=== PATIENT | female | born 1995 | race African-American/Black ===

== ENCOUNTER 2017-03-13 22:05 | Emergency (ER) | payer OTHER ==
[2017-03-13 22:06] VITALS: BP 142/75; PULSE 68; RESP 16; TEMP 97.6; O2SAT 100
[2017-03-14] MEDS ORDERED: SODIUM CHLORIDE 0.9% FLUSH 10 ML FLUSH IVF PRN (01:15)
[2017-03-14] MEDS ORDERED: RESP: ALBUTEROL 2.5 MG/IPRATROPIUM 0.5 MG NEB (SCH) INH ONE (01:15)
--- NOTE | 2017-03-14 01:15 | RADRPT ---
EXAM DATE/TIME: 03/14/2017 01:04 [place] COMPARISON: No previous studies available for comparison. INDICATIONS : Short of breath. MEDICAL HISTORY : None. SURGICAL HISTORY : None. ENCOUNTER: Initial ACUITY: 1 day PAIN SCORE: 6/10 LOCATION: Bilateral chest FINDINGS: The lungs are clear without infiltrate, nodule, or mass. There is no appreciable pleural effusion fo r technique. Heart and mediastinum are unremarkable. CONCLUSION: No acute cardiopulmonary disease. Dilip Chapman MD on March 14, 2017 at 1:13 Board Certified Radiologist. This report was verified electronically.
[2017-03-14 01:25] VITALS: O2SAT 100
[2017-03-14] MEDS ORDERED: ALBU1AER5 INH (01:34)
[2017-03-14 01:50] LABS: BLOOD, URINE NEG (NEG); COMMENT (UR) CULT NOT INDICATED; CULTURE IF INDICATED CULT NOT INDICATED; GLUCOSE,URINE NEG (NEG); KETONE, URINE NEG (NEG); MUCUS URINE FEW /lpf (OCC); NITRITE,URINE NEG (NEG); SQUAMOUS EPITHELIAL CELL URINE 3 /hpf (0-5); URINE COLOR YELLOW (YELLW/STRAW)
--- NOTE | 2017-03-14 02:16 | PD ---
HPI Chief Complaint: Respiratory Distress Time Seen by Provider: 23:54 Travel History International Travel<30 days: No Contact w/Intl Traveler<30days: No Traveled to known affect area: No History of Present Illness HPI The patient is a 21 year old female who presents to the [facility] emergency department with a history of shortness of breath that she reports began at approximately 7 PM this evening. The patient reports that she is currently visiting from out of town. The patient reports that she does have a history of asthma, however she did not bring her rescue inhaler with her. She incidentally also reports that she's had constipation for the last 2 days she's been traveling. She reports having urinary frequency without dysuria or urinary urgency. The patient denies any recent fevers, cough, congestion, neck pain, chest pain, shortness of breath, abdominal pain, vomiting, diarrhea, or neurologic symptoms. LMP: At the beginning of the month PFSH Past Medical History Narrative Medical The patient's past medical history is significant for asthma. Her last asthma attack was 2 years ago. Medical History: Denies Significant Hx Respiratory: Yes Immunizations Current: Yes ?: Not Past Surgical History Narrative Surgical The patient's past surgical history is reportedly none. Surgical History: No Previous Surgery Social History Alcohol Use: No Tobacco Use: No Substance Use: No Allergies-Medications (Allergen,Severity, Reaction): Coded Allergies: Shellfish (Verified Allergy, Severe, Swelling, 03/13/17) Reported Meds & Prescriptions Reported Meds & Active Scripts Active Proair Respiclick Inh (Albuterol Sulfate) 90 Mcg/Act Aerp 2 Puff INH Q4-6H PRN Review of Systems Except as stated in HPI: all other systems reviewed are Neg General / Constitutional: No: Fever Eyes: No: Visual changes HENT: No: Headaches Cardiovascular: Positive: Dyspnea on exertion, No: Chest Pain or Discomfort Respiratory: Positive: Shortness of Breath, Wheezing, No: Cough Gastrointestinal: No: Nausea, Vomiting, Diarrhea, Abdominal Pain Genitourinary: No: Dysuria Musculoskeletal: No: Pain Skin: No Rash Neurologic: No: Weakness Psychiatric: No: Depression Endocrine: No: Polydipsia Hematologic/Lymphatic: No: Easy Bruising Physical Exam Narrative General: The patient is a well-developed well-nourished female in no acute distress. Head and Neck exam: Head is normocephalic atraumatic. Eyes: EOMI, pupils are equal round and reactive to light. Nose: Midline septum with pink mucous membranes Mouth: Dentition unremarkable. Moist mucus membranes. Posterior oropharynx is not erythematous. No tonsillar hypertrophy. Uvula midline. Airway patent. Neck: No palpable lymphadenopathy. No nuchal rigidity. No thyromegaly. Cardiovascular: Regular rate and rhythm without murmurs, gallops, or rubs. Lungs: Soft expiratory wheezes are audible throughout bilateral lung mabry. No accessory muscle use. No paroxysmal abdominal breathing, no tripoding. Abdomen: Soft, without tenderness to palpation in all 4 quadrants of the abdomen. No guarding, rebound, or rigidity. Normal bowel sounds are audible. No tenderness on palpation of McBurney's point. Extremities: No clubbing, cyanosis, or edema. 2+ pulses in all 4 extremities. No calf tenderness on palpation. Back: No spinous process tenderness to palpation. The patient reports having left- sided CVA tenderness on palpation. Neurologic Exam: Grossly nonfocal. Skin Exam: No rash noted. Intact skin that is warm and dry. Data Data Last Documented VS Vital Signs Date Time Temp Pulse Resp B/P Pulse Ox O2 Delivery O2 Flow Rate FiO2 03/14/17 01:25 100 21 03/14/17 00:10 18 Room Air 03/13/17 22:06 97.6 68 142/75 Orders Chest, Single Ap (03/14/17 01:02) Sodium Chloride 0.9% Flush (Ns Flush) (03/14/17 01:15) Albuterol-Ipratropium Neb (Duoneb Neb) (03/14/17 01:15) Urinalysis - C+S If Indicated (03/14/17 01:33) Ed Urine Pregnancytest Poc (03/14/17 01:33) Labs Laboratory Tests Test 03/14/17 01:42 Urine Color YELLOW Urine Turbidity CLEAR Urine pH 7.0 Urine Specific [place] 1.025 Urine Protein TRACE mg/dL Urine Glucose (UA) NEG mg/dL Urine Ketones NEG mg/dL Urine Occult Blood NEG Urine Nitrite NEG Urine Bilirubin NEG Urine Urobilinogen LESS THAN 2.0 MG/DL Urine Leukocyte Esterase MOD Urine WBC LESS THAN 1 /hpf Urine Squamous Epithelial 3 /hpf Cells Urine Mucus FEW /lpf Microscopic Urinalysis Comment CULT NOT INDICATED MDM Medical Decision Making Medical Screen Exam Complete: Yes Emergency Medical Condition: Yes Medical Record Reviewed: Yes Differential Diagnosis Urinary tract infection, versus asthma exacerbation, versus pneumonia, versus musculoskeletal strain Narrative Course During the course of the patients emergency department visit, the patients history, examination, and differential diagnosis were reviewed with the patient. The patient had a chest x-ray ordered. The urine will be sent for analysis. A bedside test was negative. The patient was initially provided a DuoNeb 1. The patients laboratory studies were reviewed and remarkable for a urinalysis that is unremarkable. Radiology studies were reviewed and remarkable for a chest x-ray that shows no acute abnormality. The patient will be discharged home with a prescription for a rescue inhaler. The patient is resting comfortably and feels better, is alert and in no distress. The patients results and examination findings were discussed with the patient. The repeat examination is unremarkable and benign. The history, exam, diagnostic testing, and current condition do not suggest any significant pathology to warrant further testing, continued ED treatment, admission, or surgical evaluation at this point. The vital signs have been stable. The patient does not have uncontrollable pain, intractable vomiting, or other significant symptoms. The patient's condition is stable and appropriate for discharge. The patient will pursue further outpatient evaluation with a primary care physician or other designated or consulting physician as indicated in the discharge instructions. The patient expressed understanding and was agreeable with this plan. Diagnosis Primary Impression: Asthma exacerbation Referrals: Primary Care Physician Patient Instructions: Asthma (ED), General Instructions Med/Other Pt SpecificInfo: Prescription(s) given Scripts Albuterol Powder Inh (Proair Respiclick Inh)90 Mcg/Act Aerp2 Puff INH Q4-6H PRN (SHORTNESS OF BREATH) #1 INHALER Ref 0 Prov:Liz Dykes MD 03/14/17 Disposition: DISCHARGE HOME Condition: Stable Liz Dykes MD March 14, 2017 02:16
== END 2017-03-14 02:27 | disposition home or self-care (01) ==
LOC: NEPE 22:05
DX: J45.901 Unspecified asthma with (acute) exacerbation (principal); R35.0 Frequency of micturition; K59.00 Constipation, unspecified; Z87.09 Personal history of other diseases of the respiratory system
CPT/HCPCS: 71010; 81001; 84703; 94664; 99283